=== PATIENT | female | born 1940 | race African-American/Black ===

== ENCOUNTER → 2017-06-16 | Outpatient (CLI) | payer MEDICARE, BC ==
[2015-07-21 11:00] VITALS: BP 109/65
[~2017-06-16] MED LIST: ACET1TAB33 PO; DICY20TA3 PO; GLUC1TAB69 PO; OXYC-323 PO
--- NOTE | 2017-06-16 10:12 | RAD ---
DATE: 06/16/2017 EXAM: DIGITAL SCREEN BILAT W/CAD HISTORY: Routine screening COMPARISON: 04/06/2016 This study was interpreted with the benefit of Computerized Aided Detection (CAD). The breast parenchyma is primarily fatty replaced. Breast parenchyma level density A. FINDINGS: No new or enlarging breast densities are seen. Numerous benign type calcifications are again noted. No suspicious microcalcifications have developed. IMPRESSION: Stable mammograms without evidence of malignancy. BI-RADS CATEGORY: 2 BENIGN FINDING(S) RECOMMENDED FOLLOW-UP: 12M 12 MONTH FOLLOW-UP PQRS compliance statement: Patient information was entered into a reminder system with a target due date for the next mammogram. Mammography is a sensitive method for finding small breast cancers, but it does not detect them all and is not a substitute for careful clinical examination. A negative mammogram does not negate a clinically suspicious finding and should not result in delay in biopsying a clinically suspicious abnormality. "Our facility is accredited by the [employer] Mammography [employer]."
== END | disposition home or self-care (01) ==
LOC: MAMMO 08:26
PROVIDERS: ATTEND Family Medicine
DX: Z12.31 Encounter for screening mammogram for malignant neoplasm of breast (principal)
CPT/HCPCS: G0202; 77067

== ENCOUNTER → 2018-08-07 | Outpatient (CLI) | payer BC, MEDICARE ==
[2015-07-21 11:00] VITALS: BP 109/65
[~2018-08-07] MED LIST changes: -OXYC-323 PO; +OXYC1TAB15 PO
--- NOTE | 2018-08-07 16:38 | RAD ---
DATE: 08/07/2018 EXAM: MAMMO CLAUS SCREENING BILATERAL HISTORY: Benign left breast biopsy in 1979 is reported. COMPARISON: 04/07/2015, 04/06/2016, 06/16/2017 mammographic exams This study was interpreted with the benefit of Computerized Aided Detection (CAD). Breast Density: SCATTERED The breast parenchyma shows scattered fibroglandular densities. Breast parenchyma level B. FINDINGS: Benign calcifications are present. No masses or distortion. Left axillary lymph node is benign in appearance. IMPRESSION: Benign findings. Stable. BI-RADS CATEGORY: 2 BENIGN FINDING(S) RECOMMENDED FOLLOW-UP: 12M 12 MONTH FOLLOW-UP PQRS compliance statement: Patient information was entered into a reminder system with a target due date in one year for the next mammogram. Mammography is a sensitive method for finding small breast cancers, but it does not detect them all and is not a substitute for careful clinical examination. A negative mammogram does not negate a clinically suspicious finding and should not result in delay in biopsying a clinically suspicious abnormality. "Our facility is accredited by the [employer] Mammography [employer]."
== END | disposition home or self-care (01) ==
LOC: MAMMO 08:26
PROVIDERS: ATTEND Pediatrics
DX: Z12.31 Encounter for screening mammogram for malignant neoplasm of breast (principal)
CPT/HCPCS: 77063; 77067

== ENCOUNTER → 2019-08-30 | Outpatient (CLI) | payer MEDICARE ==
[2015-07-21 11:00] VITALS: BP 109/65
--- NOTE | 2019-08-31 15:33 | RAD ---
History: Routine Screening. Technique: Bilateral digital mammographic routine views were obtained with CAD - computer aided detection. Comparison: 08/07/2018. Findings: Breast Tissue Density A : The breast tissue is predominately fatty replaced. There are no suspicious masses, microcalcifications or areas of architectural distortion. Impression: Negative mammogram. BI-RADS Category 1: Negative. Normal interval followup. . A mammogram does not have 100% sensitivity and therefore a negative imaging study should not delay further work up of a suspicious abnormality. The patient will receive a letter with the results in the mail. Patient information is entered into the reminder system with a target due date for the next screening mammogram. The patient will receive a reminder. "Our facility is accredited by the [employer] Mammography [employer]." BI-RADS 1 -- negative findings (within normal)
== END ==
LOC: MAMMO 11:49
PROVIDERS: ATTEND Pediatrics
DX: Z12.31 Encounter for screening mammogram for malignant neoplasm of breast (principal)
CPT/HCPCS: 77067

== ENCOUNTER → 2019-12-13 | Outpatient (CLI) | payer MEDICARE ==
[2015-07-21 11:00] VITALS: BP 109/65
--- NOTE | 2019-12-13 16:37 | RAD ---
Examination: 1. Standing AP bilateral knees. 2. Bilateral knees 3 views each INDICATION: Osteoarthritis of both knees and bilateral knee pain. FINDINGS: The bilateral AP standing view of the knees shows marked bilateral joint space narrowing in both medial and lateral compartments with no lateral listhesis and no parasellar valgus deformity to the knees. AP, tunnel and lateral views of the right knee confirm severe. Joint space narrowing with no evidence of a loose body and no joint effusion. No fracture or aggressive osseous lesions are seen. Bones are mildly demineralized. Osteophytic spurring is most bulky on the medial compartment. Soft tissues unremarkable. AP, tunnel and lateral views of the left knee show mild tricompartmental osteophytic spurring and marked joint space narrowing in all 3 compartments but no significant joint effusion, or evidence of a loose body. No fracture or aggressive osseous lesions. Soft tissues unremarkable IMPRESSION: Advanced tricompartmental degenerative changes in both knees. No fracture or malalignment. Electronically signed by: Ranjeet Mccain MD (12/13/2019 4:34 PM) [id number]
== END ==
LOC: RAD 15:37
PROVIDERS: ATTEND Family Medicine
DX: M17.0 Bilateral primary osteoarthritis of knee (principal); M25.661 Stiffness of right knee, not elsewhere classified
CPT/HCPCS: 73562; 73565

== ENCOUNTER → 2021-05-13 | Outpatient (CLI) | payer MEDICARE ==
[2015-07-21 11:00] VITALS: BP 109/65
[~2021-05-13] MED LIST changes: +DICY20TA PO; -DICY20TA3 PO
--- NOTE | 2021-05-13 13:07 | RAD ---
INDICATION : Routine Screening. COMPARISON: Multiple priors including August 2018 TECHNIQUE: Standard mammogram screening views of the bilateral breasts were obtained. CAD was utilize d. FINDINGS: The breasts are scattered density. No definite suspicious mass. There is repeat demonstration of sca ttered calcifications bilaterally. IMPRESSION: BI-RADS Category 2: Benign findings. Recommend repeat screening exam in one year. The patient was placed into the recall system with a suggested recall date for follow up imaging. Mammography is the most sensitive method for finding small breast cancers, but it does not detect the m all and is not a substitute for careful clinical examination. A negative mammogram does not negate a clinically suspicious finding and should not result in delay in biopsying a clinically suspicious abnormality. Electronically signed by: Justin Oh MD (05/13/2021 1:05 PM) [id number]
== END ==
LOC: MAMMO 12:52
PROVIDERS: ATTEND Pediatrics
DX: Z12.31 Encounter for screening mammogram for malignant neoplasm of breast (principal)
CPT/HCPCS: 77067